=== PATIENT | male | born 1960 | race Caucasian/White ===

== ENCOUNTER 2024-05-21 06:34 | Day surgery (SDC) | payer OTHER ==
[~2024-05-21] VITALS: Ht 208.3 cm; Wt 104.3 kg
[2024-05-21] MEDS ORDERED: MEPERIDINE 100 MG INJ. 100 MG/ML VIAL ONE (07:50)
[2024-05-21] MEDS ORDERED: SIMETHICONE 40 MG/0.6 ML ML ONE (07:50)
[2024-05-21] MEDS ORDERED: MIDAZOLAM HCL 5 MG/5 ML VIAL ONE (07:50)
[2024-05-21 15:22] VITALS: O2SAT 98
[2024-05-21 19:33] VITALS: BP_SYST 121; PULSE 68; RESP 18; TEMP 97.2
== END 2024-05-21 09:15 | disposition home or self-care (01) ==
LOC: SDS 06:34 → SMU 06:36 → SDS 09:15
PROVIDERS: ATTEND Internal Medicine Gastroenterology
DX: Z12.11 Encounter for screening for malignant neoplasm of colon (principal); D12.2 Benign neoplasm of ascending colon; D12.3 Benign neoplasm of transverse colon; K57.30 Diverticulosis of large intestine without perforation or abscess without bleeding; K64.8 Other hemorrhoids; I10 Essential (primary) hypertension; Z90.49 Acquired absence of other specified parts of digestive tract; Z79.82 Long term (current) use of aspirin; Z79.899 Other long term (current) drug therapy
CPT/HCPCS: 45385; 99152; 82948; 88305; 99153; G0378; J2250; J2175